=== PATIENT | male | born 1990 | race African-American/Black ===

== ENCOUNTER 2021-11-17 02:02 | Emergency (ER) | payer OTHER ==
[2021-11-17] MEDS ORDERED: Lidocaine 2% 20 ML MDV INFILT ONE (02:03)
== END 2021-11-17 03:10 ==
LOC: FB.ED 02:02
DX: S61.314A Laceration without foreign body of right ring finger with damage to nail, initial encounter (principal); Z72.0 Tobacco use; W23.0XXA Caught, crushed, jammed, or pinched between moving objects, initial encounter; Y99.0 Civilian activity done for income or pay
CPT/HCPCS: 99000; 99284